=== PATIENT | female | born 1985 | race Caucasian/White ===

== ENCOUNTER 2018-06-09 22:34 | Observation (INO) | payer BC ==
[~2018-06-09] VITALS: Ht 175.3 cm; Wt 117.0 kg
[~2018-06-09 22:34] MED LIST: CEFTIN250 M1 PO; L-THYROXINE S0.05 MG PO; MOTRIN800 MG PO; PERCOCET 325 MG1 TA2 PO
[2018-06-09 23:38] LABS: BASO % 0.2 % (0.0-2.0); EOS % 0.2 % (0-4.0); GRAN # 3.7 (1.4-6.5); GRAN % 81.4 % (42.2-75.2); HEMATOCRIT 31.6 % (37.0-47.0); HEMOGLOBIN 10.2 g/dl (12.5-16.0); LYMPH # 0.6 (1.2-3.4); LYMPH % 13.6 % (20.0-51.0); MEAN CELL VOLUME 80 fl (80.0-100.0); MEAN CORPUSCULAR HEMOGLOBIN 26 pg (27.0-31.0); MEAN CORPUSCULAR HGB CONC 32 g/dl (33.0-37.0); MEAN PLATELET VOLUME 10.5 fl (7.4-10.4); MONO # 0.2 (0.1-0.6); MONO % 4.4 % (1.7-9.3); PLATELET COUNT 183 K/mm3 (130-400); RED BLOOD COUNT 3.95 M/mm3 (4.10-5.30); REDCELL DISTRIBUTION WIDTH-CV 16.5 % (11.5-14.5)
[2018-06-09] MEDS ORDERED: ZITHROMAX Z PA250 MG PO (23:39)
[2018-06-09] MEDS ORDERED: PROMETHAZINE V473 M2 PO (23:40)
[2018-06-09 23:43] LABS: INR 1.4 (0.8-3.0); PROTHROMBIN TIME 15.8 SECONDS (9.7-12.8)
[2018-06-09 23:51] LABS: ALBUMIN 3.5 gm/dL (3.5-5.0); BILIRUBIN,TOTAL 0.6 mg/dL (0.0-1.0); CALCIUM 7.9 mg/dL (8.4-10.2); CREATININE, serum 0.8 mg/dL (0.52-1.25); POTASSIUM 3.4 mmol/L (3.4-5.0); TOTAL PROTEIN 6.6 gm/dL (6.4-8.2)
[2018-06-10] VITALS (633 sets, daily range): BP systolic 96–122; BP diastolic 64–89; PULSE 87–100; TEMP 98–100.5; O2SAT 77–100
[2018-06-10 00:02] LABS: C-REACTIVE PROTEIN 15.8 mg/dL (0.0-0.9)
[2018-06-10 02:05] LABS: COLLECTION METHOD CLEAN CATCH
[2018-06-10 02:10] LABS: PH 6 (5-8); SQUAMOUS EPITHELIAL None Seen /hpf; URINE APPEARANCE Clear; URINE BACTERIA None Seen /hpf; URINE BILIRUBIN Negative (NEGATIVE); URINE BLOOD Negative (NEGATIVE); URINE COLOR Straw; URINE GLUCOSE Negative (NEGATIVE); URINE KETONE Trace (NEGATIVE); URINE LEUKOCYTE ESTERASE Negative (NEGATIVE); URINE NITRATE Negative (NEGATIVE); URINE PROTEIN(semi-quant) Negative (NEGATIVE); URINE RBC 0-2 /hpf; URINE UROBILINOGEN Negative (NEGATIVE)
[2018-06-10 05:55] LABS: RETIC # 0.04 M/mm3 (0.02-0.16); RETIC % 1.1 % (0.5-3.52)
[2018-06-10 06:51] LABS: TOTAL IRON BINDING CAPACITY 200 ug/dL (265-497)
[2018-06-10 07:18] LABS: FERRITIN 103 ng/mL (6-137)
[2018-06-10] MEDS ORDERED: DOXYCYCLINE 10100 MG PO (12:15)
[2018-06-10 12:16] LABS: CALCIUM 7.2 mg/dL (8.4-10.2); CREATININE, serum 0.68 mg/dL (0.52-1.25); POTASSIUM 3.2 mmol/L (3.4-5.0)
[2018-06-10] MEDS ORDERED: PROAIR HFA0.09 MG/AC IH (12:16)
[2018-06-10] MEDS ORDERED: TESSALON P100 MG/CAP PO (12:16)
[2018-06-11 01:00] VITALS: BP 96/66; PULSE 100; TEMP 100.5
[2018-06-11 05:00] VITALS: BP 115/73; PULSE 96; TEMP 99.7
[2018-06-11 07:14] LABS: BASO % 0.3 % (0.0-2.0); EOS % 0.9 % (0-4.0); GRAN # 2.3 (1.4-6.5); GRAN % 71.8 % (42.2-75.2); LYMPH # 0.7 (1.2-3.4); LYMPH % 20.2 % (20.0-51.0); MEAN CELL VOLUME 83 fl (80.0-100.0); MEAN CORPUSCULAR HGB CONC 31 g/dl (33.0-37.0); MEAN PLATELET VOLUME 10.9 fl (7.4-10.4); MONO # 0.2 (0.1-0.6); MONO % 6.5 % (1.7-9.3); PLATELET COUNT 173 K/mm3 (130-400); RED BLOOD COUNT 3.43 M/mm3 (4.10-5.30)
[2018-06-11 07:20] LABS: ALBUMIN 2.9 gm/dL (3.5-5.0); BILIRUBIN,TOTAL 0.2 mg/dL (0.0-1.0); CALCIUM 7.8 mg/dL (8.4-10.2); CREATININE, serum 0.58 mg/dL (0.52-1.25); POTASSIUM 3.9 mmol/L (3.4-5.0); TOTAL PROTEIN 5.9 gm/dL (6.4-8.2)
[2018-06-11 07:27] LABS: HEMATOCRIT 28.4 % (37.0-47.0); HEMOGLOBIN 8.8 g/dl (12.5-16.0); MEAN CORPUSCULAR HEMOGLOBIN 26 pg (27.0-31.0)
[2018-06-11 07:42] VITALS: BP 119/77; PULSE 91; TEMP 99.1
[2018-06-11] MEDS ORDERED: IMITREX50 MG PO (12:26)
[2018-06-11] MEDS ORDERED: TORADOL 10MG TA10 MG PO (12:28)
[2018-06-11 12:29] VITALS: BP 113/79; PULSE 88; TEMP 99.4
[2018-06-11] MEDS ORDERED: NATURAL IRON65 MG PO (16:34)
== END 2018-06-11 14:25 | disposition home or self-care (01) ==
LOC: COL.ER 22:34 → ICU 06-10 00:27 → MEDICAL 06-10 15:00
PROVIDERS: Emergency Medicine; Nurse Practitioner; Physician Assistant
DX: J18.9 Pneumonia, unspecified organism (principal); R00.0 Tachycardia, unspecified; D50.9 Iron deficiency anemia, unspecified; E87.1 Hypo-osmolality and hyponatremia; G43.909 Migraine, unspecified, not intractable, without status migrainosus; E87.6 Hypokalemia
CPT/HCPCS: G0378; J0696; J1650; J1885; J2405; J7030; J7050